=== PATIENT | female | born 1945 | race Caucasian/White ===

== ENCOUNTER 2017-05-03 09:04 | Outpatient (CLI) | payer MEDICARE | END 2017-05-03 09:05 | disposition home or self-care (01) | LOC: BICMAMMO 09:04 | PROVIDERS: ATTEND Internal Medicine | DX: Z12.31 Encounter for screening mammogram for malignant neoplasm of breast (principal); Z85.3 Personal history of malignant neoplasm of breast | CPT/HCPCS: 77067; G0202 ==

== ENCOUNTER 2018-05-05 09:37 | Outpatient (CLI) | payer MEDICARE | END 2018-05-05 09:38 | disposition home or self-care (01) | LOC: BICMAMMO 09:37 | PROVIDERS: ATTEND Internal Medicine | DX: Z12.31 Encounter for screening mammogram for malignant neoplasm of breast (principal); Z85.3 Personal history of malignant neoplasm of breast | CPT/HCPCS: 77063; 77067 ==

== ENCOUNTER 2018-05-09 11:24 | Outpatient (CLI) | payer MEDICARE ==
--- NOTE | 2018-05-09 12:47 | RAD ---
RIGHT KNEE THREE VIEWS: History: Right knee pain. FINDINGS: Degenerative changes are seen, most prominent in the medial tibiofemoral compartment. No fracture, di slocation, or bony destruction is seen. IMPRESSION: Right knee osteoarthritis. POS: [facility]
== END 2018-05-09 11:25 | disposition home or self-care (01) ==
LOC: BICRAD 11:24
PROVIDERS: ATTEND Internal Medicine
DX: M25.561 Pain in right knee (principal); M17.11 Unilateral primary osteoarthritis, right knee

== ENCOUNTER 2018-05-29 09:38 | Outpatient (CLI) | payer MEDICARE ==
--- NOTE | 2018-05-29 14:20 | MRI ---
MRI OF RIGHT KNEE PERFORMED WITHOUT CONTRAST ENHANCEMENT: HISTORY: Right knee pain. History of previous knee surgery. The type of surgery is not specified. FINDINGS: The anterior as well as posterior cruciate ligaments are intact. There is a truncated slightly irregular free edge to the body of the medial meniscus. There are arth ritic changes to the medial compartment of the knee. There is joint space narrowing associated with these findings. Some marrow edema change along the medial edge of the tibia. The lateral meniscus has a fairly normal shape and appearance. There are arthritic changes of the la teral compartment with spur formation. The patellar articular cartilage shows some mild articular cartilage loss of the medial facet. The m edial and lateral patellar retinaculum and quadriceps and patellar tendons are normal. The medial and lateral collateral ligaments and iliotibial band regions are normal. IMPRESSION: Truncated slightly irregular free edge of the body of the medial meniscus suggesting a degenerative-t ype tear. There is moderate arthritic change of the medial compartment of the knee with marrow edema change and subchondral cystic change along the medial edge of the tibia. POS: [facility]
== END 2018-05-29 09:39 | disposition home or self-care (01) ==
LOC: BICMRI 09:38
PROVIDERS: ATTEND Orthopaedic Surgery
DX: M25.561 Pain in right knee (principal); M17.11 Unilateral primary osteoarthritis, right knee

== ENCOUNTER 2019-04-03 10:13 | Outpatient (CLI) | payer MEDICARE ==
--- NOTE | 2019-04-03 10:43 | RAD ---
EXAM: 3 views of the left ankle HISTORY: Ankle pain for 4 days COMPARISON: None FINDINGS: 3 views of the left ankle shows no evidence of acute fracture or dislocation. A well-cortic ated ossification adjacent to the lateral malleolus may represent sequelae from remote trauma. No soft tissue swelling is seen. No degenerative changes are present. IMPRESSION: No evidence of acute osseous abnormality.
--- NOTE | 2019-04-03 12:17 | RAD ---
LEFT SHOULDER 3 VIEWS: Date: 04/03/19 HISTORY: Pain. COMPARISON: None. FINDINGS: There is moderate degenerative change of the acromioclavicular joint with some ossification of the sheth perior acromioclavicular ligament. There is ossification along the rotator cuff. There is left upper lobe calcified granuloma. IMPRESSION: 1. Moderate degenerative change of acromioclavicular joint. 2. Mild calcific tendinosis of rotator cuff can be source of patient's pain. 3. Possible nodule just medial to a calcified granuloma. A chest radiograph is recommended. CODE LN. POS: [facility]
--- NOTE | 2019-04-03 12:19 | RAD ---
LEFT FOOT 3 VIEWS: Date: 04/03/19 HISTORY: Pain. COMPARISON: None. FINDINGS: There is ossification at the peroneus brevis insertion of fifth metatarsal tuberosity. There is also extensive ossification of the Achilles tendon insertion upon the calcaneus. Small plantar calcaneal s pur. No acute fracture or malalignment. IMPRESSION: Chronic findings. No acute osseous abnormality. POS: [facility]
== END 2019-04-03 10:14 | disposition home or self-care (01) ==
LOC: BICRAD 10:13
PROVIDERS: ATTEND Internal Medicine
DX: M79.672 Pain in left foot (principal); M25.512 Pain in left shoulder; M25.572 Pain in left ankle and joints of left foot; M19.012 Primary osteoarthritis, left shoulder; M65.812 Other synovitis and tenosynovitis, left shoulder
CPT/HCPCS: 36415; 80053; 80061; 82306; 84443; 85025

== ENCOUNTER 2019-04-07 09:18 | Outpatient (CLI) | payer MEDICARE ==
--- NOTE | 2019-04-07 09:36 | RAD ---
EXAM: Chest 2 views: HISTORY: Pulmonary nodule COMPARISON: None. FINDINGS: There is a normal-sized cardiomediastinal silhouette. There is no evidence of consolidation, mass, or pleural effusion. The bones are unremarkable. IMPRESSION: No evidence of acute cardiopulmonary disease
== END 2019-04-07 09:19 | disposition home or self-care (01) ==
LOC: BICRAD 09:18
PROVIDERS: ATTEND Internal Medicine
DX: R91.1 Solitary pulmonary nodule (principal)
CPT/HCPCS: 36415; 71046; 80048; 83036

== ENCOUNTER 2019-05-08 08:43 | Outpatient (CLI) | payer MEDICARE ==
--- NOTE | 2019-05-08 09:10 | MMO ---
Bilateral MAMMO Bilat Screen [facility]. CLINICAL HISTORY: Patient is 73 years old and is seen for screening. The patient has the following family history of breast cancer: sister, at age 43, malignant (generic). The patient has a history of malignant (generic) in the left breast 1998 and malignant (generic) in the right breast 2004. The patient has a history of right Lumpectomy in 2004 - malignant and left Lumpectomy in 1998 - malignant. VIEWS: The views performed were: bilateral craniocaudal with tomosynthesis and bilateral mediolateral oblique with tomosynthesis. FILMS COMPARED: The present examination has been compared to prior imaging studies performed at [facility] on 05/03/2017 and 05/05/2018, and at [facility] on 04/29/2015 and 04/30/2016. This study has been interpreted with the assistance of computer-aided detection. MAMMOGRAM FINDINGS: There are scattered fibroglandular densities. Finding 1: There are stable post operative changes seen in both breasts. Finding 2: There are stable benign appearing calcifications seen in both breasts. There are no suspicious masses, suspicious calcifications, or new areas of architectural distortion. IMPRESSION: THERE IS NO MAMMOGRAPHIC EVIDENCE OF MALIGNANCY. A ROUTINE FOLLOW-UP MAMMOGRAM IN 1 YEAR IS RECOMMENDED. THE RESULTS OF THIS EXAM WERE SENT TO THE PATIENT. ACR BI-RADS Category 2 - Benign finding MAMMOGRAPHY NOTE: 1. A negative mammogram report should not delay a biopsy if a dominant of clinically suspicious mass is present. 2. Approximately 10% to 15% of breast cancers are not detected by mammography. 3. Adenosis and dense breasts may obscure an underlying neoplasm. Reported by: VASILE BEAVER MD Electonically Signed: [id number]
--- NOTE | 2019-05-08 09:28 | BD ---
EXAM: Bone densitometry using DEXA HISTORY: 73 yo female. Screening for postmenopausal osteoporosis FINDINGS: L1--bone mineral density 0.925 g/sq cm; T score -0.6 ; Z score 1.4 L2--bone mineral density 1.107 g/sq cm; T score 0.7 ; Z score 3.0 L3--bone mineral density 1.134 g/sq cm; T score 0.5 ; Z score 2.8 L4--bone mineral density 1.163 g/sq cm; T score 0.9 ; Z score 3.4 Total L1-L4--bone mineral density 1.087 g/sq cm; T score 0.4 ; Z score 2.6 Left femoral neck--bone mineral density0.715; T score -1.2 ; Z score 0.8 Total proximal left femur--bone mineral density 0.862; T score -0.7 ; Z score 1.0 IMPRESSION: Osteopenia
== END 2019-05-08 08:44 | disposition home or self-care (01) ==
LOC: BICMAMMO 08:43
PROVIDERS: ATTEND Internal Medicine
DX: Z12.31 Encounter for screening mammogram for malignant neoplasm of breast (principal); M85.852 Other specified disorders of bone density and structure, left thigh; Z80.3 Family history of malignant neoplasm of breast; Z85.3 Personal history of malignant neoplasm of breast; Z98.890 Other specified postprocedural states
CPT/HCPCS: 77063; 77067; 77080

== ENCOUNTER 2019-08-06 09:15 | Outpatient (CLI) | payer MEDICARE ==
--- NOTE | 2019-08-06 09:54 | RAD ---
XR Thoracic Spine 2 View History: Back pain Comparison: Reference is made to a chest radiograph March 2019 Findings: Similar mild dextro scoliosis upper thoracic spine. No acute fracture or malalignment. Mild calcifications of the transverse aorta. Impression: No acute osseous abnormality. Low-grade levoscoliosis of the thoracic spine of 5 degrees.
--- NOTE | 2019-08-06 09:57 | RAD ---
Cervical spine 4 views: 08/06/2019 COMPARISON: None HISTORY: Neck pain FINDINGS: Disc space and with degenerative endplate change at C5-6 and C6-7 noted with mild anterior osteophyte formation. There is no anterolisthesis or retrolisthesis noted. No prevertebral soft tissue swelling. Mid cervical spine bilateral facet and uncovertebral osteophyte formation. Open-mouth odontoid view d emonstrates a normal-appearing dens and C1-2 articulation. Fuchs view demonstrates a grossly unremarkable appearance of the dens. There is atherosclerotic calcification overlying the neck bilaterally suggesting carotid atherosclero tic disease, which could be better assessed via ultrasound if clinically warranted. IMPRESSION: Multilevel degenerative change within the cervical spine as described above.
== END 2019-08-06 09:16 | disposition home or self-care (01) ==
LOC: BICRAD 09:15
PROVIDERS: ATTEND Internal Medicine
DX: M54.2 Cervicalgia (principal); M54.6 Pain in thoracic spine; M47.812 Spondylosis without myelopathy or radiculopathy, cervical region; M41.9 Scoliosis, unspecified
CPT/HCPCS: 72040; 72070

== ENCOUNTER 2019-08-12 13:45 | Outpatient (CLI) | payer MEDICARE ==
--- NOTE | 2019-08-12 14:25 | ULT ---
BILATERAL CAROTID DUPLEX ULTRASOUND: DATE: 08/12/2019 HISTORY: Atherosclerosis of carotid arteries TECHNIQUE: Allen scale ultrasound with color flow and spectral Doppler imaging of the extracranial carotid artery systems performed bilaterally. FINDINGS: There is plaque formation bilaterally. The peak systolic velocity in the right ICA measures 103 cm/second with an end-diastolic velocity of 26 cm/second and a systolic ratio of 1.05. The peak systolic velocity in the left ICA measures 107 cm/second with an end-diastolic velocity of 2 9 cm/second and a systolic ratio of 0.85. Flow in both vertebral arteries remains antegrade. IMPRESSION: No evidence of hemodynamically significant stenosis. POS: [facility]
== END 2019-08-12 13:46 | disposition home or self-care (01) ==
LOC: BICULT 13:45
PROVIDERS: ATTEND Internal Medicine
DX: I65.23 Occlusion and stenosis of bilateral carotid arteries (principal)
CPT/HCPCS: 93880

== ENCOUNTER 2019-11-19 10:59 | Outpatient (CLI) | payer MEDICARE ==
--- NOTE | 2019-11-19 11:17 | RAD ---
RADIOGRAPH CHEST 2 VIEWS: DATE: 11/19/2019 HISTORY: 74-year-old female with inflammatory polyarthropathy FINDINGS: There is no airspace density, pulmonary edema, pleural effusion, pneumothorax, or cardiomegaly. IMPRESSION: No acute cardiopulmonary findings.
== END 2019-11-19 11:00 | disposition home or self-care (01) ==
LOC: BICRAD 10:59
PROVIDERS: ATTEND Internal Medicine Rheumatology
DX: M06.4 Inflammatory polyarthropathy (principal)
CPT/HCPCS: 71046

== ENCOUNTER 2020-04-05 15:15 | Outpatient (CLI) | payer MEDICARE ==
--- NOTE | 2020-04-05 16:00 | RAD ---
XR Hip Lt 2-3 View History: Hip pain Comparison: None. Findings: Moderate narrowing of both hip joints with ring osteophytes of the femoral head/neck juncti ons acetabular osteophytes. No acute fracture or malalignment. Mild sclerosis of the pubic symphysis. Subcortical cysts of the left femoral head. Mild degenerative change both SI joints. Moderate facet arthrosis lower lumbar spine. Mild vascular calcifications. Impression: Moderate degenerative change. No acute osseous abnormality.
== END 2020-04-05 15:16 | disposition home or self-care (01) ==
LOC: BICRAD 15:15
PROVIDERS: ATTEND Internal Medicine
DX: M25.552 Pain in left hip (principal); M16.12 Unilateral primary osteoarthritis, left hip

== ENCOUNTER 2020-05-09 07:44 | Outpatient (CLI) | payer MEDICARE ==
--- NOTE | 2020-05-09 08:37 | MMO ---
Bilateral MAMMO Bilat Screen [facility]. CLINICAL HISTORY: Patient is 74 years old and is seen for screening. The patient has the following family history of breast cancer: sister, at age 43, malignant (generic). The patient has a history of malignant (generic) in the left breast 1998 and malignant (generic) in the right breast 2004. The patient has a history of right Lumpectomy in 2004 - malignant and left Lumpectomy in 1998 - malignant. VIEWS: The views performed were: bilateral craniocaudal with tomosynthesis; bilateral mediolateral oblique with tomosynthesis; and left exaggerated craniocaudal. FILMS COMPARED: The present examination has been compared to prior imaging studies performed at [facility] on 05/03/2017, 05/05/2018 and 05/08/2019, and at [facility] on 04/30/2016. This study has been interpreted with the assistance of computer-aided detection. MAMMOGRAM FINDINGS: There are scattered fibroglandular densities. Benign calcifications are noted bilaterally. There are stable BILATERAL post-operative changes. There are no suspicious masses, suspicious calcifications, or new areas of architectural distortion. IMPRESSION: THERE IS NO MAMMOGRAPHIC EVIDENCE OF MALIGNANCY. A ROUTINE FOLLOW-UP MAMMOGRAM IN 1 YEAR IS RECOMMENDED. THE RESULTS OF THIS EXAM WERE SENT TO THE PATIENT. ACR BI-RADS Category 2 - Benign finding MAMMOGRAPHY NOTE: 1. A negative mammogram report should not delay a biopsy if a dominant of clinically suspicious mass is present. 2. Approximately 10% to 15% of breast cancers are not detected by mammography. 3. Adenosis and dense breasts may obscure an underlying neoplasm. Reported by: YING SHERIDAN MD Electonically Signed: [id number]
== END 2020-05-09 07:45 | disposition home or self-care (01) ==
LOC: BICMAMMO 07:44
PROVIDERS: ATTEND Internal Medicine
DX: Z12.31 Encounter for screening mammogram for malignant neoplasm of breast (principal); Z80.3 Family history of malignant neoplasm of breast; Z85.3 Personal history of malignant neoplasm of breast; Z98.890 Other specified postprocedural states
CPT/HCPCS: 77063; 77067

== ENCOUNTER 2021-05-10 07:45 | Outpatient (CLI) | payer MEDICARE | END 2021-05-10 07:46 | disposition home or self-care (01) | LOC: BICMAMMO 07:45 | PROVIDERS: ATTEND Internal Medicine | DX: Z12.31 Encounter for screening mammogram for malignant neoplasm of breast (principal); Z13.820 Encounter for screening for osteoporosis; Z78.0 Asymptomatic menopausal state; M85.851 Other specified disorders of bone density and structure, right thigh; M85.852 Other specified disorders of bone density and structure, left thigh; Z85.3 Personal history of malignant neoplasm of breast; Z80.3 Family history of malignant neoplasm of breast | CPT/HCPCS: 77063; 77067; 77080 ==

== ENCOUNTER 2022-11-15 08:39 | Outpatient (CLI) | payer MEDICARE | END 2022-11-15 08:40 | disposition home or self-care (01) | LOC: BICRAD 08:39 | PROVIDERS: ATTEND Internal Medicine | DX: M25.512 Pain in left shoulder (principal); M77.8 Other enthesopathies, not elsewhere classified ==

== ENCOUNTER 2023-05-13 08:46 | Outpatient (CLI) | payer MEDICARE | END 2023-05-13 08:47 | disposition home or self-care (01) | LOC: BICMAMMO 08:46 | PROVIDERS: ATTEND Internal Medicine | DX: Z12.31 Encounter for screening mammogram for malignant neoplasm of breast (principal); Z13.820 Encounter for screening for osteoporosis; M85.852 Other specified disorders of bone density and structure, left thigh; M85.851 Other specified disorders of bone density and structure, right thigh; Z85.3 Personal history of malignant neoplasm of breast; Z78.0 Asymptomatic menopausal state; Z80.3 Family history of malignant neoplasm of breast; Z98.890 Other specified postprocedural states | CPT/HCPCS: 77063; 77067; 77080 ==

== ENCOUNTER 2023-10-16 14:44 | Inpatient (IN) | payer MEDICARE ==
[2023-10-16 16:14] LABS: #Basophils Less than 0.03 10x3/uL (0.0-0.2); #Eosinphils Less than 0.03 10x3/uL (0.0-0.7); %Basophils 0.2 % (0.0-1.0); %Lymphocytes 2.6 % (21.0-51.0); %Monocytes 5.4 % (0.0-10.0); %Neutrophils 89.9 % (42.0-75.0); Hematocrit 35.7 % (36.0-47.0); Hemoglobin 12.4 g/dL (12.0-16.0); Mean Corpuscular HGB CONC 34.7 g/dL (32.0-36.0); Mean Corpuscular Hemoglobin 30.7 pg (27.0-31.0); Mean Corpuscular Volume 88.4 fL (78.0-98.0); Mean Platelet Volume 11.3 fL (7.4-10.4); Platelet Count 138 10x3/uL (130-400); RBC Distribution Width 15.3 % (11.5-14.5); Red Blood Cell (RBC) Count 4.04 mill/uL (4.20-5.40)
[2023-10-16 16:48] LABS: ALT (SGPT) 88 U/L (8-55); AST (SGOT) 37 U/L (5-34); Albumin 2.5 g/dL (3.4-4.8); Alkaline Phosphatase 144 U/L (40-110); Anion Gap 17 mmol/L (10-20); BUN (Urea Nitrogen) 19 mg/dL (9.8-20.1); Bilirubin, Total 1.4 mg/dL (0.2-1.2); Calc. Creatinine Clearance 0 mL/min (70-130); Calcium 7.2 mg/dL (7.8-10.44); Carbon Dioxide 29 mmol/L (23-31); Chloride 95 mmol/L (98-107); Estimated GFR 56; Globulin 2.1 g/dL (2.4-3.5); Glucose 573 mg/dL (83-110); Magnesium 1.4 mg/dL (1.6-2.6); Potassium 2.5 mmol/L (3.5-5.1); Protein, Total 4.6 g/dL (5.8-8.1); Sodium 138 mmol/L (136-145)
[2023-10-16] MEDS ORDERED: NS 0.9% w/ 40 MEQ KCL 1,000 ML IV SCH (17:45)
[2023-10-16] MEDS ORDERED: Potassium Chloride 20 MEQ TAB ONE (17:45)
[2023-10-16] MEDS ORDERED: Magnesium 2 GM/50 ML BAG (IN WATER) ONE (17:45)
[2023-10-16 18:50] LABS: Troponin I 0.094 ng/mL (< 0.028)
[2023-10-16] MEDS ORDERED: Acetaminophen 325 MG TAB PO PRN (19:25)
[2023-10-16] MEDS ORDERED: Dextrose 5% in Water 1,000 ML IV PRN (19:25)
[2023-10-16] MEDS ORDERED: Dextrose 50% Abboject 50 ML SYRINGE SLOW IVP PRN (19:25)
[2023-10-16] MEDS ORDERED: Ondansetron PF 4 MG/2 ML Vial IVP PRN (19:25)
[2023-10-16] MEDS ORDERED: Glucagon 1 MG/ML KIT IM PRN (19:25)
[2023-10-16] MEDS ORDERED: Loperamide HCl 2 MG CAP PO PRN (19:34)
[2023-10-16] MEDS ORDERED: Lactated Ringer's 1,000 ML IV SCH (19:45)
[2023-10-16 21:20] LABS: Troponin I 0.109 ng/mL (< 0.028)
[2023-10-16 23:04] VITALS: BMI 37.0
[2023-10-16 23:25] LABS: HBCM Index 0.12 S/CO (0-0.79); HBsAg Index 0.23 S/CO (0-0.99); Hep A IgM AB NONREACTIVE (NonReactive); Hep A IgM S/CO 0.13 S/CO (0-0.79); Hep B Surf Ag NONREACTIVE S/CO (NonReactive); Hep C IgG Ab NONREACTIVE S/CO (NonReactive); Hep C Index 0.11 S/CO (0-0.79); Hepatitis B Core IgM Abs NONREACTIVE S/CO (NonReactive)
[2023-10-16] MEDS: hydrALAZINE 25 MG TAB PO SCH (23:36)
[2023-10-16] MEDS: Amiodarone 200 MG TAB PO SCH (23:36)
[2023-10-16] MEDS: Apixaban 5 MG TAB PO SCH (23:38)
[2023-10-17] MEDS: Alogliptin 25 MG TAB PO SCH ×2 (00:09→00:19)
[2023-10-17 02:01] LABS: Glucose 566 mg/dL (83-110)
[2023-10-17 02:11] LABS: Magnesium 1.7 mg/dL (1.6-2.6); Potassium 2.5 mmol/L (3.5-5.1)
[2023-10-17] MEDS: HumaLOG 300 UNITS/3 ML VIAL SC PRN ×2 (02:34→04:49)
[2023-10-17] MEDS: Insulin Glargine 30 UNITS/0.3 ML VIAL SC SCH ×2 (02:35→09:25)
[2023-10-17] MEDS: Magnesium 2 GM/50 ML(in water) 2 GM in Premix 1 BAG IVPB SCH ×2 (02:36→12:10)
[2023-10-17] MEDS: Potassium Chloride 20 MEQ in Premix 1 BAG IVPB SCH (04:16)
[2023-10-17 04:42] LABS: #Basophils Less than 0.03 10x3/uL (0.0-0.2); #Eosinphils Less than 0.03 10x3/uL (0.0-0.7); %Basophils 0.2 % (0.0-1.0); %Lymphocytes 2.2 % (21.0-51.0); %Monocytes 4.3 % (0.0-10.0); %Neutrophils 90.6 % (42.0-75.0); Hematocrit 34.8 % (36.0-47.0); Hemoglobin 11.9 g/dL (12.0-16.0); Mean Corpuscular HGB CONC 34.2 g/dL (32.0-36.0); Mean Corpuscular Volume 90.6 fL (78.0-98.0); Mean Platelet Volume 11.4 fL (7.4-10.4); Platelet Count 112 10x3/uL (130-400); RBC Distribution Width 15.3 % (11.5-14.5); Red Blood Cell (RBC) Count 3.84 mill/uL (4.20-5.40)
[2023-10-17 09:17] LABS: ALT (SGPT) 117 U/L (8-55); AST (SGOT) 45 U/L (5-34); Albumin 2.6 g/dL (3.4-4.8); Alkaline Phosphatase 180 U/L (40-110); Anion Gap 12 mmol/L (10-20); BUN (Urea Nitrogen) 18 mg/dL (9.8-20.1); Bilirubin, Total 1.1 mg/dL (0.2-1.2); Calc. Creatinine Clearance 85 mL/min (70-130); Calcium 7.2 mg/dL (7.8-10.44); Carbon Dioxide 32 mmol/L (23-31); Chloride 100 mmol/L (98-107); Estimated GFR 73; Globulin 2.3 g/dL (2.4-3.5); Glucose 276 mg/dL (83-110); Potassium 2.6 mmol/L (3.5-5.1); Protein, Total 4.9 g/dL (5.8-8.1); Sodium 141 mmol/L (136-145)
[2023-10-17] MEDS: Cholecalciferol (Vitamin D3) 400 UNITS TAB PO SCH (09:23)
[2023-10-17] MEDS: Potassium Chloride 20 MEQ TAB PO SCH ×2 (09:24→12:09)
[2023-10-17] MEDS: Pantoprazole DR 40 MG TAB PO SCH (09:24)
[2023-10-17] MEDS: Spironolactone 25 MG TAB PO SCH (09:24)
[2023-10-17] MEDS: Lisinopril 20 MG TAB PO SCH (09:24)
[2023-10-17] MEDS: Nebivolol HCl 5 MG TAB PO SCH (09:25)
[2023-10-17] MEDS: Rosuvastatin 20 MG TAB PO SCH (09:25)
[2023-10-17] MEDS: HumaLOG 300 UNITS/3 ML VIAL SC SCH (13:11)
[2023-10-17 16:01] LABS: Hemoglobin A1c 8.1 % (4.0-6.0)
[2023-10-17 18:04] LABS: Glucose 371 mg/dL (83-110); Magnesium 2.1 mg/dL (1.6-2.6)
[2023-10-17] MEDS: Loperamide HCl 2 MG CAP PO SCH (21:02)
[2023-10-18 04:16] LABS: #Basophils Less than 0.03 10x3/uL (0.0-0.2); #Eosinphils Less than 0.03 10x3/uL (0.0-0.7); %Basophils 0.2 % (0.0-1.0); %Eosinophils 0.1 % (0.0-10.0); %Lymphocytes 6.7 % (21.0-51.0); %Monocytes 6.3 % (0.0-10.0); %Neutrophils 82.1 % (42.0-75.0); Hematocrit 33.8 % (36.0-47.0); Hemoglobin 11.6 g/dL (12.0-16.0); Mean Corpuscular HGB CONC 34.3 g/dL (32.0-36.0); Mean Corpuscular Volume 90.4 fL (78.0-98.0); Mean Platelet Volume 11.7 fL (7.4-10.4); Platelet Count 125 10x3/uL (130-400); RBC Distribution Width 16.1 % (11.5-14.5); Red Blood Cell (RBC) Count 3.74 mill/uL (4.20-5.40)
[2023-10-18 04:34] LABS: Anion Gap 7 mmol/L (10-20); BUN (Urea Nitrogen) 18 mg/dL (9.8-20.1); Calc. Creatinine Clearance 93 mL/min (70-130); Calcium 7.3 mg/dL (7.8-10.44); Carbon Dioxide 30 mmol/L (23-31); Chloride 104 mmol/L (98-107); Estimated GFR 81; Glucose 163 mg/dL (83-110); Potassium 3.4 mmol/L (3.5-5.1); Sodium 138 mmol/L (136-145)
[2023-10-18] MEDS: Magnesium Oxide 400 MG TAB PO SCH (10:18)
[2023-10-18] MEDS: Potassium Chloride 20 MEQ TAB PO SCH (12:00)
[2023-10-18 17:41] LABS: Magnesium 1.8 mg/dL (1.6-2.6)
[2023-10-19 04:42] LABS: Hematocrit 37.6 % (36.0-47.0); Hemoglobin 12.7 g/dL (12.0-16.0); Mean Corpuscular HGB CONC 33.8 g/dL (32.0-36.0); Mean Corpuscular Hemoglobin 30.3 pg (27.0-31.0); Mean Corpuscular Volume 89.7 fL (78.0-98.0); Mean Platelet Volume 11.6 fL (7.4-10.4); Platelet Count 136 10x3/uL (130-400); RBC Distribution Width 16.7 % (11.5-14.5); Red Blood Cell (RBC) Count 4.19 mill/uL (4.20-5.40)
[2023-10-19 05:04] LABS: Band 4 % (5-11); Lymphocytes 6 % (21-51); Monocytes 4 % (0-10); Neutrophil 83 % (42-75); Platelet Adequacy Comment Platelets Normal; Polychromasia SLIGHT = 2-3 cells HPF (0-2); Reactive Lymphocytes 3 % (0-10)
[2023-10-19 05:15] LABS: Anion Gap 14 mmol/L (10-20); BUN (Urea Nitrogen) 18 mg/dL (9.8-20.1); Calc. Creatinine Clearance 93 mL/min (70-130); Carbon Dioxide 29 mmol/L (23-31); Chloride 101 mmol/L (98-107); Estimated GFR 81; Glucose 213 mg/dL (83-110); Potassium 3.9 mmol/L (3.5-5.1); Sodium 140 mmol/L (136-145)
[2023-10-19] MEDS: Potassium Chloride 20 MEQ TAB PO SCH (11:00)
[2023-10-19 11:27] VITALS: BP 176/74; TEMP 98.2
== END 2023-10-19 16:13 | disposition home or self-care (01) | DRG 641 ==
LOC: ERS 14:44 → 2NO 18:12 → OBSVTOIN 10-17 09:38
PROVIDERS: ADMIT Internal Medicine; ATTEND Internal Medicine
DX: E87.6 Hypokalemia (principal); I48.91 Unspecified atrial fibrillation; I10 Essential (primary) hypertension; E66.9 Obesity, unspecified; E83.42 Hypomagnesemia; E11.65 Type 2 diabetes mellitus with hyperglycemia; E86.0 Dehydration; Z68.27 Body mass index [BMI] 27.0-27.9, adult; Z79.899 Other long term (current) drug therapy
CPT/HCPCS: 36415; 36416; 80048; 80053; 80074; 82043; 83036; 83735; 84484; 85025; 93005; G0378; J1815; J3475; J3480